=== PATIENT | male | born 1955 | race Caucasian/White ===

== ENCOUNTER 2016-11-17 12:51 | Inpatient (IN) ==
[2016-11-17] MEDS ORDERED: SODIUM CHLORIDE 0.9% 1,000 ML IV STA (14:42)
[2016-11-17] MEDS ORDERED: ONDANSETRON 4 MG/2 ML VIAL IV STA (14:42)
[2016-11-17] MEDS ORDERED: MORPHINE 2 MG/1 ML SYRINGE IV STA (14:42)
[2016-11-17] MEDS ORDERED: ONDANSETRON 4 MG/2 ML VIAL ONE (14:59)
[2016-11-17] MEDS ORDERED: MORPHINE 2 MG/1 ML SYRINGE ONE (14:59)
[2016-11-17 15:04] LABS: Basophils % 0.3 % (0.0-0.8); Eosinophils % 0.1 % (0.00-10.9); Hemoglobin 12.7 GM/DL (14.0-18.0); Immature Granulocytes % 0.4 %; Immature Granulocytes Absolute 0.05 #; Lymphocytes # 0.7 10*3/uL (1.4-4.0); Lymphocytes % 6.3 % (21.2-54.2); Mean Corpuscular HGB Conc 33.4 GM/DL (32-36); Mean Corpuscular Hemoglobin 27 PG (27-34); Mean Corpuscular Volume 79.2 FL (87-102); Mean Platelet Volume 8.9 FL (9.6-12.0); Monocytes # 1.2 10*3/uL (0.11-0.8); Monocytes % 9.9 % (1.7-12.7); Neutrophils # 9.8 10*3/uL (1.4-7.4); Platelet Count 386 T/CUMM (130-400); Red Cell Distribution Width 13.6 % (9.3-17.3); White Blood Count 11.8 T/CUMM (4-12)
[2016-11-17 15:12] LABS: Apearance,Urine CLEAR (Clear); Bilirubin,Urine Negative (Negative); Blood, Urine Moderate mg/dL (Negative); Glucose,Urine (UA) Negative (Negative); Ketones,Urine 20 mg/dL (Negative); Mucus,Urine Occasional /LPF (Occasional); Nitrite,Urine Negative (Negative); Protein,Urine 30 MG/DL; RBC,Urine 14 /HPF (0-4); Squamous Epithelial Cell,Urine Occasional /HPF (0-10); Urine Color Yellow (Yellow); Urine Specific Gravity 1.014 (1.001-1.035); Urine Urobilinogen < 2.0 EU/DL (0.2-1.0); WBC,Urine 2 /HPF (0-6)
[2016-11-17 15:13] LABS: Bilirubin,Total 0.8 MG/DL (0.2-1.0); Calcium 8.9 MG/DL (8.5-10.1); Potassium 3.2 MMOL/L (3.5-5.1); Total Protein 6.9 G/DL (6.4-8.3)
--- NOTE | 2016-11-17 15:19 | CT Report ---
CT abdomen pelvis w con Indication: Epigastric pain, nausea, leukocytosis Comparison: None Technique: Multiple axial tomographic images of the abdomen and pelvis were obtained after the administration of 100 cc Omnipaque 350 intravenous contrast. Findings: Mild dependent change of the lungs present. Occasional subcentimeter hypodensities are demonstrated within the liver which are too small to characterize but may reflect cysts. There is an indeterminate hypoattenuating lesion within the ventral aspect of segment 4 of the liver which measures up to 1.4 cm. This may be partially fill in on delayed phase. Status post cholecystectomy. There is mild peripancreatic fat stranding. The spleen is grossly unremarkable. The bilateral adrenal glands are grossly unremarkable. The bilateral kidneys are grossly unremarkable. The urinary bladder is incompletely distended. The prostate and seminal vesicles are grossly unremarkable. There is no evidence of gastrointestinal obstruction or acute appendicitis. Surgical suture material demonstrated within the small bowel of the left abdomen with associated dilatation measuring up to 6.3 cm. This is most likely postoperative. Suture material demonstrated the junction of the small bowel and proximal colon within the right abdomen. Multiple mildly prominent nonspecific mesenteric and periaortic lymph nodes. Prior ventral abdominal hernia repair with mesh. There is a fluid collection within the central portion of this mass which measures up to 3.0 x 2.0 x 4.5 cm in width, AP, and caudad dimensions respectively. Mild atherosclerotic calcifications demonstrated. Osseous structures demonstrate no acute minimally. IMPRESSION: Mild peripancreatic fat stranding suspicious for pancreatitis. Correlate with amylase/lipase. Prior ventral abdominal hernia repair with mesh. There is a fluid collection within the central portion of this mass which measures up to 3.0 x 2.0 x 4.5 cm in width, AP, and caudad dimensions respectively. This most likely reflects postoperative seroma. It would be difficult to completely exclude other fluid collection such as abscess. There is an indeterminate hypoattenuating lesion within the ventral aspect of segment 4 of the liver which measures up to 1.4 cm. This may be partially fill in on delayed phase. Recommend MRI abdomen with and without contrast for further evaluation. Multiple mildly prominent nonspecific mesenteric and periaortic lymph nodes. Status post cholecystectomy, postoperative changes of the bowel, and other detailed findings as above. Critical Results: Discussed with Unruly Bourne NP at time of dictation. The CT exam was performed using one or more of the following dose reduction techniques: Automated exposure control, adjustment of the mA and/or kV according to patient size, or use of iterative reconstruction technique. PROCEDURE INTERPRETED AT [facility] DEPARTMENT OF RADIOLOGY Final Report Signed by: Dr Gerson Tipton
--- NOTE | 2016-11-17 15:59 | Emergency Department Note ---
Arrival - Arrival Chief Complaint: Abdominal / Flank Pain Stated Complaint: abdominal pain sent by dr madden ED Nursing Triage Note: Pt c/o left upper abd pain since Tuesday with loss of appeitite. Denies N/V/D. Mode of Arrival: Ambulatory Source: Patient Time Seen by Provider: 11/17/16 14:24 - History of Present Illness HPI Narrative: 61 y/o male presents to the ER complaining of left upper quadrant abdominal pain , nausea, and decreased appetite. Symptoms starting Tuesday. Patient reports he recently started taking Mercaptopurine for his Crohn's and believes it could be related to this. Denies vomiting, diarrhea, or blood in stool. Past medical history significant for Crohn's, cholecystectomy, and colon resection. Denies alcohol intake. GI: Dr. Madden Onset (ago): day(s) (3) Severity: moderate Quality: cramping Allergies/Adverse Reactions: Allergies Allergy/AdvReac Type Severity Reaction Status Date / Time No Known Allergies Allergy Verified 11/17/16 13:03 Review of System - Review of System 12 point system: reviewed and no additional remarkable complaints except as stated - Review of System Gastrointestinal: Present: abdominal pain (Left upper quadrant ), nausea, other (decreased appetite ) Medical,Surgical,& Family Hx - Medical History Gastrointestinal: History of: Crohn's Disease - Surgical History Abdominal Surgeries: Surgical HX of: Abdominal Surgery - Social History Smoking Status: Never smoker Exam Vital Signs: Vital Signs Temperature 97.8 F 11/17/16 13:18 Pulse Rate 89 11/17/16 16:35 Respiratory Rate 18 11/17/16 16:35 Blood Pressure 162/79 11/17/16 16:35 O2 Sat by Pulse Oximetry 97 11/17/16 16:35 - General General appearance: alert, in no apparent distress - ENT ENT exam: Present: normal exam, normal oropharynx, mucous membranes moist - Chest Chest inspection: Present: normal inspection - Respiratory Respiratory exam: Present: normal lung sounds bilaterally - Cardiovascular Cardiovascular exam: Present: regular rate, normal rhythm, normal heart sounds - Abdominal Exam Abdominal exam: Present: soft, normal bowel sounds. Absent: tenderness - Extremities Exam Extremities exam: Present: normal inspection, full ROM - Back Exam Back exam: Absent: CVA tenderness (R), CVA tenderness (L) - Neurological Exam Neurological exam: Present: alert, oriented X3 - Psychiatric Psychiatric exam: Present: normal affect, normal mood - Skin Skin exam: Present: warm, dry Course - Consultations Consultation #1: Hospitalist Time: 16:00 (Will admit patient to the Hospitalist ) Consultation #2: Dr. Madden Time: 15:55 (Discussed with Dr. Madden. Dr. Madden feels like pancreatitis is related to 6MP. Dr. Madden recommends we give patient the option to come in the Hospital for IVF and pain medication. If patient is not wanting admission he can go home and drink plenty of clear liquids and PO pain medication. ) Results - Labs CBC & BMP: 11/17/16 14:40 11/17/16 14:40 Lab Results: I have reviewed the patients labs - Diagnostic Findings Procedure: CT Abdomen and Pelvis: image reviewed by me, report reviewed by me ( refer to CT report ) Disposition Clinical Impression: Pancreatitis Disposition: Still a Patient
--- NOTE | 2016-11-17 16:19 | Hospitalist History & Physical ---
Assessment and Plan (1) Crohns disease Status: Chronic Assessment and plan: Recent corticosteroid use. Previous separate resections of the colon and most recently small bowel. Current Visit: Yes (2) Pancreatitis Status: Acute Assessment and plan: Recent introduction of mercaptopurine as probable precipitant for pancreatitis. Current Visit: Yes History of Present Illness History of present illness: Mr. Blood is a 61 year old male with history of long-standing Crohn's disease. The patient's initial diagnosis was for an intra-abdominal abscess during which time he required resection of a segment of his colon. Approximately 2 months ago the patient was hospitalized at [facility] with an adhesive obstruction of the small bowel which required resection. 2 weeks ago he was placed on mercaptopurine to supplement his oral corticosteroid use. 3 days ago the patient had the onset of epigastric discomfort. There was no change in his chronic loose bowel movements and no fever or vomiting. The pain was unremitting with no palliative or provocative features. Patient has a previous history of cholecystectomy he does not consume alcoholic beverages. He had called Dr. Hong regarding the symptoms and was found on blood work to have an elevation of his lipase level. He was referred to the emergency department where CT scan of his abdomen demonstrated mild peripancreatic inflammatory change and changes associated with previous operative interventions. He is admitted for management. Patient has a generally benign past medical history other than the Crohn's disease. He was told on one occasion of a heart murmur but has never required any cardiac evaluations. He is a non-smoker without history of diabetes. Allergies Allergy/AdvReac Type Severity Reaction Status Date / Time No Known Allergies Allergy Verified 11/17/16 13:03 Medical,Surgical,& Family Hx - Medical History Gastrointestinal: History of: Crohn's Disease (Recent episode of small bowel obstruction requiring segmental resection ) - Surgical History Abdominal Surgeries: Surgical HX of: Abdominal Surgery (Colon resection, small bowel resection), Cholecystectomy, Hernia Repair (Incisional hernia with mesh repair) - Family History Family History: noncontributory - Social History Smoking Status: Never smoker Frequency of Alcohol Use: None Functional capacity: independent ambulation - Constitutional Constitutional: Absent: chills, fever(s) - Cardiovascular Cardiovascular: Absent: chest pain with activity, dyspnea on exertion, edema, palpitations - Respiratory Respiratory: Absent: dyspnea, wheezing - Gastrointestinal Gastrointestinal: Present: abdominal pain, diarrhea (Chronic loose bowel movements). Absent: bloating, dysphagia, hematemesis, hematochezia, melena, vomiting - Genitourinary Genitourinary: Absent: hematuria - Neurological Neurological: Absent: convulsions, syncope Exam - Constitutional Vitals: Period Temp Pulse Resp BP Sys/Schroeder Pulse Ox Last 24 Hr 97.8 F-97.8 F 95-101 16-20 167-185/87-93 96-97 General appearance: normal weight - Neck Neck exam: Absent: lymphadenopathy, thyromegaly - Respiratory Respiratory exam: Present: clear to auscultation bilaterally. Absent: rales, rhonchi, wheezes - Cardiovascular Cardiovascular exam: Present: regular rate and rhythm. Absent: systolic murmur - GI/Abdominal GI/Abdominal exam: Present: hypoactive bowel sounds, tenderness (Mild epigastric tenderness). Absent: ascites, distended, organomegaly, rebound - Extremities Exam Extremities exam: Absent: edema - Neurological Exam Neurological exam: Present: alert, oriented X3 Results - Labs CBC & BMP: 11/17/16 14:40 11/17/16 14:40 Labs: Amylase 162 Lipase 1160 Albumin 3.0 Globulin 3.9 Urinalysis specific gravity 1.014, urine protein 30 - Diagnostic Findings Procedure: CT Abdomen and Pelvis: report reviewed by me (Postoperative changes sloan-pancreatic inflammatory change mesenteric adenopathy)
[2016-11-17] MEDS ORDERED: MORPHINE 2 MG/1 ML SYRINGE IV PRN (17:34)
[2016-11-17] MEDS ORDERED: SODIUM CHLORIDE 0.9% 1,000 ML IV SCH (17:34)
[2016-11-17] MEDS ORDERED: ACETAMINOPHEN 325 MG TABLET PO PRN (17:34)
[2016-11-17] MEDS ORDERED: ONDANSETRON 4 MG/2 ML VIAL IV PRN (17:34)
[2016-11-17] MEDS: HYDROCORTISONE 100 MG VIAL IV SCH (18:18)
[2016-11-17] MEDS: DEXT 5% LACT RING KCL 20 MEQ 20 MEQ/1,000 ML BAG IV SCH (18:38)
[2016-11-18] MEDS: DEXT 5% LACT RING KCL 20 MEQ 20 MEQ/1,000 ML BAG IV SCH ×4 (00:47→21:02)
[2016-11-18] MEDS: HYDROCORTISONE 100 MG VIAL IV SCH ×3 (00:47→17:04)
--- NOTE | 2016-11-18 07:05 | Hospitalist Progress Note ---
Assessment and Plan (1) Crohns disease Status: Chronic Assessment and plan: Recent corticosteroid use. Previous separate resections of the colon and most recently small bowel. Current Visit: Yes (2) Pancreatitis Status: Acute Assessment and plan: Recent introduction of mercaptopurine as probable precipitant for pancreatitis. Current Visit: Yes Hospitalist: Subjective Interval history: 61-year-old male with long-standing Crohn's disease who recently required abdominal surgery for adhesive small bowel obstruction. The patient 2 weeks ago was placed on mercaptopurine through Dr. Hong office. 3 days prior to admission the patient had abrupt onset of epigastric abdominal pain without nausea vomiting or change in chronic liquid bowel movements. He was referred for admission following obtaining blood work consistent with pancreatitis with subsequent CT of the abdomen showing sloan-pancreatic inflammatory changes. Overnight his vital signs have been stable. He has had no nausea no vomiting and is required no pain medication for over 12 hours. He was placed on stress dose hydrocortisone based on a history of oral corticosteroid use. Exam - Constitutional Vitals: Period Temp Pulse Resp BP Sys/Schroeder Pulse Ox Last 24 Hr 97.8 F-99.2 F 64-101 16-20 116-185/68-93 90-97 General appearance: normal weight - Respiratory Respiratory exam: Present: clear to auscultation bilaterally. Absent: rales, rhonchi, wheezes - Cardiovascular Cardiovascular exam: Present: regular rate and rhythm - GI/Abdominal GI/Abdominal exam: Present: normal bowel sounds. Absent: distended, tenderness , rebound - Extremities Exam Extremities exam: Absent: edema - Neurological Exam Neurological exam: Present: alert, oriented X3 Results - Labs CBC & BMP: 11/18/16 07:37 11/18/16 07:37
[2016-11-18 08:22] LABS: Basophils % 0.1 % (0.0-0.8); Eosinophils % 0.1 % (0.00-10.9); Hematocrit 32.2 VOL% (42.0-52.0); Immature Granulocytes % 0.5 %; Immature Granulocytes Absolute 0.04 #; Lymphocytes # 0.7 10*3/uL (1.4-4.0); Lymphocytes % 9.5 % (21.2-54.2); Mean Corpuscular HGB Conc 33.2 GM/DL (32-36); Mean Corpuscular Hemoglobin 27 PG (27-34); Mean Corpuscular Volume 80.9 FL (87-102); Mean Platelet Volume 9.2 FL (9.6-12.0); Monocytes # 0.6 10*3/uL (0.11-0.8); Monocytes % 8.8 % (1.7-12.7); Neutrophils # 5.9 10*3/uL (1.4-7.4); Platelet Count 332 T/CUMM (130-400); Red Blood Count 3.98 MC/CUMM (3.8-5.5); Red Cell Distribution Width 13.7 % (9.3-17.3)
[2016-11-18 08:23] LABS: Hemoglobin 10.7 GM/DL (14.0-18.0); White Blood Count 7.3 T/CUMM (4-12)
[2016-11-18 08:47] LABS: Calcium 8.6 MG/DL (8.5-10.1); Magnesium 2.1 MG/DL (1.8-2.4); Osmolality,Calculated 278.3 MOS/KG (273-304); Potassium 4.4 MMOL/L (3.5-5.1)
--- NOTE | 2016-11-18 13:28 | Gastrointestinal Progress Note ---
Assessment and Plan (1) Pancreatitis Status: Acute Assessment and plan: This was likely caused by the 6-mercaptopurine and has dissipated as the patient is off of this medication now, unfortunately this will require the patient to find another acceptable alternative to use to help him taper off steroids over time. We might consider use of methotrexate next. Note that the 6-MP can result in long lasting inflammation in the pancreas and so it is good that he is already down to 0 out of 10 pain at this time. Agree with continue fluids while he is here, agree with 150 mL/h of lactated Ringer's for the present time. If he does all right with a low fat low protein diet he can likely be discharged tomorrow to observe this diet for another 2 weeks. I have asked dietary to give him instructions as to what this type of diet is precisely. He needs to stay on his Entocort EC 6 mg per day and follow-up with my office in another 4-8 weeks, to consider methotrexate or Humira. Current Visit: Yes (2) Crohns disease Status: Chronic Assessment and plan: As noted above the patient has pancreatitis likely secondary to 6- mercaptopurine exposure. This is a fairly classic side effect of this medication. The medication had been doing fairly well for the patient up until development of the side effect. 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 He is getting Entocort EC 6 mg per day and would likely benefit from use of methotrexate and/or Humira. Will discuss in follow- up in the office. If he is stable tomorrow he can likely be discharged to home with the low fat low protein diet and aggressive hydration for the next 2 weeks Current Visit: Yes Gastroenterology - PN: Subj Interval history: This patient is well-known to me from his Crohn's disease and his recent office visit on 11/03/16. Please see my full notes included in this EMR from those dates and also nursing interactions with the patient in the interim. The patient was previously started on 6-MP in order to provide the immunosuppression needed in order to taper him off of his steroids eventually. He is on Entocort EC 6 mg per day in order to improve his Crohn's disease. Unfortunately the patient has developed a reaction to this medication with elevated amylase/lipase and acute pancreatitis. The patient has been kept on IV fluids over the evening time and his pain is 0 out of 10 in intensity at this time. He has lipase levels dropped down from 1100--> 300 and he feels back to his usual state. He is wanting to advance his diet and I am having dietary come and discuss this with him. I think if his lipase level is normal tomorrow and he is not having excessive pain, he could likely be discharged tomorrow. Exam (Progress Note) - Constitutional Vitals: Period Temp Pulse Resp BP Sys/Schroeder Pulse Ox Last 24 Hr 97.5 F-99.2 F 64-95 18-20 116-171/68-87 90-98 General appearance: no acute distress - Head Head exam: Present: normocephalic, atraumatic - Eye Eye exam: Present: EOMI - Respiratory Respiratory exam: Present: clear to auscultation bilaterally - Cardiovascular Cardiovascular exam: Present: regular rate and rhythm - GI/Abdominal GI/Abdominal exam: Present: normal bowel sounds, tenderness (The patient also has a fluid pocket just superior to his umbilicus from prior surgery/mesh), soft. Absent: ascites, distended, guarding, rebound - Extremities Exam Extremities exam: Absent: edema - Neurological Exam Neurological exam: Absent: alert, oriented X3 - Psychiatric Psychiatric exam: Present: normal affect, normal mood - Skin Skin exam: Present: warm Results - Labs CBC & BMP: 11/18/16 07:37 11/18/16 07:37
[2016-11-19] MEDS: HYDROCORTISONE 100 MG VIAL IV SCH ×2 (01:29→09:49)
[2016-11-19] MEDS: DEXT 5% LACT RING KCL 20 MEQ 20 MEQ/1,000 ML BAG IV SCH (04:00)
[2016-11-19 07:41] LABS: Basophils % 0.2 % (0.0-0.8); Eosinophils % 0.2 % (0.00-10.9); Hemoglobin 9.9 GM/DL (14.0-18.0); Immature Granulocytes % 0.5 %; Immature Granulocytes Absolute 0.03 #; Lymphocytes # 0.7 10*3/uL (1.4-4.0); Lymphocytes % 10.5 % (21.2-54.2); Mean Corpuscular Hemoglobin 27 PG (27-34); Mean Corpuscular Volume 81.1 FL (87-102); Monocytes # 0.3 10*3/uL (0.11-0.8); Monocytes % 5.5 % (1.7-12.7); Neutrophils # 5.2 10*3/uL (1.4-7.4); Neutrophils % 83.1 % (38.7-73.9); Platelet Count 288 T/CUMM (130-400); Red Cell Distribution Width 13.7 % (9.3-17.3); White Blood Count 6.2 T/CUMM (4-12)
[2016-11-19 08:11] LABS: Calcium 8.3 MG/DL (8.5-10.1); Magnesium 1.8 MG/DL (1.8-2.4); Potassium 3.8 MMOL/L (3.5-5.1)
--- NOTE | 2016-11-19 08:16 | Gastrointestinal Progress Note ---
Assessment and Plan (1) Pancreatitis Status: Acute Assessment and plan: This was likely caused by the 6-mercaptopurine and has dissipated as the patient is off of this medication now, unfortunately this will require the patient to find another acceptable alternative to use to help him taper off steroids over time. We might consider use of methotrexate next. Note that the 6-MP can result in long lasting inflammation in the pancreas and so it is good that he is already down to 0 out of 10 pain at this time. Agree with continue fluids while he is here, agree with 150 mL/h of lactated Ringer's for the present time. If he does all right with a low fat low protein diet he can likely be discharged tomorrow to observe this diet for another 2 weeks. I have asked dietary to give him instructions as to what this type of diet is precisely. He needs to stay on his Entocort EC 6 mg per day and follow-up with my office in another 4-8 weeks, to consider methotrexate or Humira. 11/19/16--The patient is doing well off of the 6-MP. He has been informed that he is not going to be able to retry this medication. We can consider use of methotrexate as her next treatment potentially to try and wean him off the steroids eventually. He is on Entocort 6 mg per day and should continue on this for the foreseeable future. He can follow-up in my office in the next 6-8 weeks or sooner if his bowel movements increased to over 6 per day or blood is noted in the stool. Concerning his underlying pancreatitis the patient needs to maintain himself on a low-fat diet for the next week, and hydrate aggressively. This is drug induced pancreatitis. Despite the low-fat diet the patient's lipase has dropped to 287, still in the normal range. Current Visit: Yes (2) Crohns disease Status: Chronic Assessment and plan: As noted above the patient has pancreatitis likely secondary to 6- mercaptopurine exposure. This is a fairly classic side effect of this medication. The medication had been doing fairly well for the patient up until development of the side effect. 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 He is getting Entocort EC 6 mg per day and would likely benefit from use of methotrexate and/or Humira. Will discuss in follow- up in the office. If he is stable tomorrow he can likely be discharged to home with the low fat low protein diet and aggressive hydration for the next 2 weeks 11/19/16--Follow-Up in 6-8 weeks or sooner if needed to consider transitioning to methotrexate as her next steroid sparing medication. Humira remains an option for the future as well. I will sign off at this time thank you taking care of this patient during his brief hospitalization. Please contact me with further questions, if any. Current Visit: Yes Gastroenterology - PN: Subj Interval history: Clinically doing great, he is eating all of his low-fat diet. He can go home today, in my opinion. Exam (Progress Note) - Constitutional Vitals: Period Temp Pulse Resp BP Sys/Schroeder Pulse Ox Last 24 Hr 97.5 F-98.8 F 70-88 18-20 122-140/68-78 95-98 General appearance: no acute distress - Head Head exam: Present: normocephalic - Eye Eye exam: Present: EOMI Pupils: Present: MAYCOL - Respiratory Respiratory exam: Present: clear to auscultation bilaterally - Cardiovascular Cardiovascular exam: Present: regular rate and rhythm - GI/Abdominal GI/Abdominal exam: Present: normal bowel sounds, soft. Absent: distended, tenderness, rebound - Extremities Exam Extremities exam: Absent: edema - Neurological Exam Neurological exam: Present: alert, oriented X3 - Psychiatric Psychiatric exam: Present: normal affect, normal mood - Skin Skin exam: Present: normal color Results - Labs CBC & BMP: 11/19/16 07:25 11/19/16 07:25
--- NOTE | 2016-11-19 09:04 | Discharge Summary ---
<Nirmala Magallon - Last Filed: 11/19/16 09:01> Hospital Course - Hospital Course Hospital Course: Mr. Blood is a 61-year-old male patient with a history of Crohn's disease, cholecystectomy, and colon resection presented to the ED on 11/17 with complaints of pain to his left upper quadrant, nausea, and decreased appetite. Patient stated that he recently started taking Mercaptopurine for his Crohn's and that his symptoms could have been related to medication use. The patient was seen in clinic by Dr. Hong regarding the symptoms that he was having and blood work was obtained. He was noted to have elevation of his lipase level and was referred to the emergency department where a CT of his abdomen revealed 'mild peripancreatic inflammatory change' and changes associated with his previous intervention. Lipase was 1116. The patient was admitted to the hospitalist program for further evaluation. GI was consulted to assist in the care of the patient. Patient was started on intravenous fluids. Patient also was started on a low fat low protein diet. Dietary was consulted to give him instructions on his diet. Patient's condition has improved. Today his lipase is 287. The patient's vital signs are stable. The patient has reached maximal benefit of inpatient stay and will be discharged. He will follow-up with Dr. Hong. Specialty Discharge - Follow Up or Referrals Follow up with: Agustín Hong MD [Physician] - 12/30/16 (6-8 week follow-up) Discharge Plan - Discharge Data Disposition: Disch To Home/Self Care - Discharge Medications New predniSONE TAB [PredniSONE] 20 mg PO DAILY #65 tablet HYDROcodone/ACETAMIN 5-325 [[place] 5-325] 1 tablet PO Q4H PRN #30 tablet PRN Reason: Pain Mild (1-3) Continue Budesonide [Budesonide EC Cap] 3 mg PO DAILY - Follow Up or Referral - Forms/Instructions Exam - Constitutional Vitals: Period Temp Pulse Resp BP Sys/Schroeder Pulse Ox Last 24 Hr 97.5 F-98.8 F 70-88 18-20 122-140/68-78 95-98 Discharge Results Labs on day of discharge: Labs from last 24 hours 11/19/16 11/19/16 07:25 07:25 WBC 6.2 RBC 3.70 L Hgb 9.9 L Hct 30.0 L MCV 81.1 L MCH 27 MCHC 33.0 RDW 13.7 Plt Count 288 MPV 9.0 L Neut % (Auto) 83.1 H Lymph % (Auto) 10.5 L [place] % (Auto) 5.5 Eos % (Auto) 0.2 Baso % (Auto) 0.2 Neut # (Auto) 5.2 Lymph # (Auto) 0.7 L [place] # (Auto) 0.3 Eos # (Auto) 0.0 Baso # (Auto) 0.0 Immature Gran % 0.5 Nucleated RBC % 0.0 Immature Gran # 0.03 Nucleated RBCs # 0.00 Sodium 143 Potassium 3.8 Chloride 106 Carbon Dioxide 30 Anion Gap 10.8 BUN 4 L Creatinine 0.70 GFR Calculation 111 BUN/Creatinine Ratio 5.00 L Glucose 128 H Calculated Osmolality 283.0 Calcium 8.3 L Magnesium 1.8 Lipase 287.0 DS: Provider Date of admission: 11/17/16 15:59 Primary care physician: . No PCP Attending physician on admission: Rashawn aHas MD Consults: 11/17/16 17:33 Consult to Dietitian [CONS] Routine Reason for Dietitian: Dietary Consult Consult to Pastoral Services [CONS] Routine Comment: Pastoral Screen: Declines Visit Pastoral Screen Source of Request: Patient 11/17/16 17:47 Consult to Physician [CONS] Routine Comment: sees in clinic Consulting Provider: Agustín Hong 11/18/16 15:40 Consult to Dietitian [CONS] Routine Reason for Dietitian: Diet Instruction Consult Comment: low fat, low protein diet instruction Discharging clinician: Nirmala Magallon NP <Alka Soni - Last Filed: 11/19/16 11:49> Hospital Course - Time spent with patient Time with patient DS: Greater than 30 minutes (40 minutes) Diagnosis - Discharge Diagnosis (1) Pancreatitis Status: Resolved (2) Crohns disease Status: Chronic Discharge Plan - Discharge Data Condition at Discharge: Stable Discharge Diet: other (low fat, low protein) Activity: increase activity as tolerated Hygiene: no restrictions Weight Bearing at Discharge: weight bear as tolerated Driving: no restrictions Contact your physician if you experience:: fever over 101 Exam - Constitutional General appearance: normal weight - Head Head exam: Present: normocephalic, atraumatic - Eye Eye exam: Present: EOMI Pupils: Present: MAYCOL - ENT ENT exam: Present: normal exam - Neck Neck exam: Present: normal inspection - Respiratory Respiratory exam: Present: clear to auscultation bilaterally. Absent: rhonchi, wheezes - Cardiovascular Cardiovascular exam: Present: regular rate and rhythm - GI/Abdominal GI/Abdominal exam: Present: normal bowel sounds, soft. Absent: tenderness, rebound - Extremities Exam Extremities exam: Present: normal inspection - Back Exam Back exam: Present: normal inspection - Neurological Exam Neurological exam: Present: alert, oriented X3 - Psychiatric Psychiatric exam: Present: normal affect, normal mood - Skin Skin exam: Present: warm, intact
[2016-11-19 13:21] VITALS: BP 141/79
== END 2016-11-19 12:30 | disposition home or self-care (01) | DRG 439 ==
LOC: N.ED 12:51 → N.EDINP 15:59 → SUATTDRO 15:59 → N.EDINP 17:06 → N.2E 17:21
PROVIDERS: ADMIT Internal Medicine Cardiovascular Disease; ATTEND Internal Medicine

== ENCOUNTER 2017-10-05 00:59 | Observation (INO) ==
[2017-10-05] MEDS ORDERED: ONDANSETRON 4 MG/2 ML VIAL IV STA (01:29)
[2017-10-05] MEDS ORDERED: MORPHINE 4 MG/1 ML VIAL IV STA (01:29)
[2017-10-05] MEDS ORDERED: SODIUM CHLORIDE 0.9% 1,000 ML IV STA (01:29)
[2017-10-05] MEDS ORDERED: ONDANSETRON 4 MG/2 ML VIAL ONE (01:33)
[2017-10-05] MEDS ORDERED: MORPHINE 4 MG/1 ML VIAL ONE (01:34)
[2017-10-05 02:02] LABS: Basophils # 0.1 10*3/uL (0.0-0.2); Basophils % 0.5 % (0.0-0.8); Eosinophils % 0.1 % (0.00-10.9); Hematocrit 41.4 VOL% (42.0-52.0); Hemoglobin 14.3 GM/DL (14.0-18.0); Immature Granulocytes % 0.3 %; Immature Granulocytes Absolute 0.03 #; Lymphocytes # 0.3 10*3/uL (1.4-4.0); Lymphocytes % 2.8 % (21.2-54.2); Mean Corpuscular HGB Conc 34.5 GM/DL (32-36); Mean Corpuscular Hemoglobin 30 PG (27-34); Mean Corpuscular Volume 85.4 FL (87-102); Mean Platelet Volume 9.3 FL (9.6-12.0); Monocytes # 0.3 10*3/uL (0.11-0.8); Monocytes % 2.8 % (1.7-12.7); Neutrophils # 10.4 10*3/uL (1.4-7.4); Neutrophils % 93.5 % (38.7-73.9); Platelet Count 187 T/CUMM (130-400); Red Blood Count 4.85 MC/CUMM (3.8-5.5); Red Cell Distribution Width 12.6 % (9.3-17.3); White Blood Count 11.1 T/CUMM (4-12)
[2017-10-05 02:28] LABS: Band Neutrophils 8 % (0-10); Lymphocytes 2 % (20-55); Metamyelocytes 2 %; Segmented Neutrophils 80 % (50-85)
[2017-10-05 02:29] LABS: Platelet Estimate Normal
[2017-10-05 02:30] LABS: Total Cells Counted 100
[2017-10-05 02:38] LABS: Alanine Aminotransferase 39 U/L (16-61); Albumin 3.9 G/DL (3.4-5.0); Alkaline Phosphatase 92 U/L (45-117); Aspartate Amino Transferase 30 U/L (0-37); Blood Urea Nitrogen 7 MG/DL (7-18); Calcium 8.4 MG/DL (8.5-10.1); Glucose 98 MG/DL (74-106); Osmolality,Calculated 265.2 MOS/KG (273-304); Potassium 3.3 MMOL/L (3.5-5.1); Sodium 134 MMOL/L (136-145); Total Protein 6.9 G/DL (6.4-8.3); Troponin I Only < 0.015 NG/ML (0.00-0.045)
[2017-10-05] MEDS ORDERED: ONDANSETRON 4 MG/2 ML VIAL IV PRN (04:20)
[2017-10-05] MEDS ORDERED: MORPHINE 4 MG/1 ML VIAL IV PRN (04:20)
[2017-10-05] MEDS ORDERED: ACETAMINOPHEN 325 MG TABLET PO PRN (04:25)
[2017-10-05] MEDS: SODIUM CHLORIDE 0.9% 1,000 ML IV SCH ×2 (06:39→20:53)
[2017-10-05] MEDS: methylPREDNISolone SOD SUC 40 MG/1 ML VIAL IV SCH ×2 (08:46→16:09)
[2017-10-05] MEDS: PANTOPRAZOLE 40 MG TABLET PO SCH (08:46)
[2017-10-05] MEDS: POTASSIUM CHLORIDE 20 MEQ TABLET PO SCH (08:46)
[2017-10-05] MEDS: ENOXAPARIN 40 MG/0.4 ML SYRINGE SUBCUT SCH (08:48)
[2017-10-05] MEDS ORDERED: BUDESONIDE 3 MG CAPSULE PO SCH (09:00)
[2017-10-06] MEDS: methylPREDNISolone SOD SUC 40 MG/1 ML VIAL IV SCH ×2 (00:52→08:15)
[2017-10-06 07:04] LABS: Basophils % 0.1 % (0.0-0.8); Hemoglobin 13.5 GM/DL (14.0-18.0); Immature Granulocytes % 0.5 %; Immature Granulocytes Absolute 0.05 #; Lymphocytes # 0.3 10*3/uL (1.4-4.0); Lymphocytes % 3.3 % (21.2-54.2); Mean Corpuscular HGB Conc 35.5 GM/DL (32-36); Mean Corpuscular Hemoglobin 30 PG (27-34); Mean Corpuscular Volume 84.4 FL (87-102); Mean Platelet Volume 9.3 FL (9.6-12.0); Monocytes # 0.3 10*3/uL (0.11-0.8); Monocytes % 3.2 % (1.7-12.7); Neutrophils # 9.2 10*3/uL (1.4-7.4); Neutrophils % 92.9 % (38.7-73.9); Platelet Count 224 T/CUMM (130-400); Red Cell Distribution Width 12.8 % (9.3-17.3); White Blood Count 9.9 T/CUMM (4-12)
[2017-10-06 07:30] LABS: Band Neutrophils 2 % (0-10); Giant Platelets Few; Hypochromasia 1+; Lymphocytes 4 % (20-55); Platelet Estimate Adequate; Segmented Neutrophils 93 % (50-85); Total Cells Counted 100
[2017-10-06 07:36] LABS: Calcium 8.4 MG/DL (8.5-10.1); Osmolality,Calculated 280.3 MOS/KG (273-304); Potassium 3.6 MMOL/L (3.5-5.1)
[2017-10-06] MEDS: PANTOPRAZOLE 40 MG TABLET PO SCH (08:15)
[2017-10-06] MEDS: POTASSIUM CHLORIDE 20 MEQ TABLET PO SCH (08:15)
[2017-10-06] MEDS: ENOXAPARIN 40 MG/0.4 ML SYRINGE SUBCUT SCH (08:16)
[2017-10-06] MEDS: SODIUM CHLORIDE 0.9% 1,000 ML IV SCH (09:45)
[2017-10-06 12:01] VITALS: BP 139/78
== END 2017-10-06 12:02 | disposition home or self-care (01) ==
LOC: N.EDINP 00:59 → N.ED 00:59 → N.2E 05:28
PROVIDERS: ADMIT Internal Medicine; ATTEND Internal Medicine